=== PATIENT | male | born 1980 | race Caucasian/White ===

== ENCOUNTER 2017-10-29 20:15 | Emergency (ER) | payer OTHER ==
[2017-10-29] MEDS: CYCLOBENZAPRINE 10 MG TABLET. PO (21:20)
[2017-10-29] MEDS: HYDROcodone/APAP 5/325MG 1 TAB TABLET PO (21:20)
== END 2017-10-29 22:32 | disposition home or self-care (01) ==
LOC: ER 20:15
DX: S13.4XXA Sprain of ligaments of cervical spine, initial encounter (principal); S23.3XXA Sprain of ligaments of thoracic spine, initial encounter; S39.012A Strain of muscle, fascia and tendon of lower back, initial encounter; K21.9 Gastro-esophageal reflux disease without esophagitis; F12.10 Cannabis abuse, uncomplicated; Z87.442 Personal history of urinary calculi; Z96.0 Presence of urogenital implants; Z88.5 Allergy status to narcotic agent; V43.52XA Car driver injured in collision with other type car in traffic accident, initial encounter; Y93.I9 Activity, other involving external motion; Y92.410 Unspecified street and highway as the place of occurrence of the external cause; Y99.8 Other external cause status
CPT/HCPCS: 72125; 72128; 72131; 99284-25

== ENCOUNTER 2017-11-07 08:27 | Emergency (ER) | payer OTHER ==
[2017-11-07 09:24] LABS: ADD MAN DIFF? NO
[2017-11-07 09:27] LABS: BASO # 0.1 x10^3/uL (0.0-0.2); BASO % 1 % (0-3); EOS # 0.3 x10^3/uL (0.0-0.7); EOS % 4 % (0-3); HEMATOCRIT 44.8 % (39.0-53.0); HEMOGLOBIN 15.4 g/dL (13.0-17.5); LYMPH # 2.5 x10^3/uL (1.0-4.8); LYMPH % 30 % (24-48); MEAN CORPUSCULAR HEMOGLOBIN 30 pg (25-35); MEAN CORPUSCULAR HGB CONC 34 g/dL (31-37); MEAN CORPUSCULAR VOLUME 87 fL (79-100); MONO # 0.6 x10^3/uL (0.0-1.1); MONO % 8 % (0-9); NEUT # 4.8 x10^3uL (1.8-7.7); NEUT % 58 % (31-73); PLATELET COUNT 202 x10^3/uL (140-400); RED BLOOD COUNT 5.15 x10^6/uL (4.30-5.70); RED CELL DISTRIBUTION WIDTH 13.1 % (11.5-14.5); WHITE BLOOD COUNT 8.3 x10^3/uL (4.0-11.0)
[2017-11-07] MEDS: IV NORMAL SALINE 1000ML BAG 1,000 ML IV (09:28)
[2017-11-07] MEDS: fentaNYL PF VIAL 100 MCG/2 ML VIAL IV (09:29)
[2017-11-07] MEDS: ONDANSETRON PF 4 MG/2 ML VIAL. IV (09:29)
[2017-11-07 09:46] LABS: ANION GAP 13 (6-14); BLOOD UREA NITROGEN 16 mg/dL (8-26); BUN/CREATININE RATIO 16 (6-20); CARBON DIOXIDE 23 mmol/L (21-32); CHLORIDE 108 mmol/L (98-107); GFR 83.6; GLUCOSE 116 mg/dL (70-99); POTASSIUM 4.1 mmol/L (3.5-5.1); SODIUM 144 mmol/L (136-145)
[2017-11-07 09:50] LABS: ALBUMIN 3.8 g/dL (3.4-5.0); ALBUMIN/GLOBULIN RATIO 1.2 (1.0-1.7); ALK PHOS 107 U/L (46-116); ALT (SGPT) 56 U/L (16-63); AST (SGOT) 22 U/L (15-37); LIPASE 267 U/L (73-393); TOTAL BILIRUBIN 0.2 mg/dL (0.2-1.0); TOTAL PROTEIN 7.1 g/dL (6.4-8.2)
[2017-11-07 09:56] LABS: BILIRUBIN,URINE NEGATIVE (NEG); CLARITY,URINE CLOUDY; COLOR,URINE YELLOW; GLUCOSE,URINE NEGATIVE (NEG); NITRITE,URINE NEGATIVE (NEG); PROTEIN,URINE NEGATIVE (NEG-TRACE); UROBILINOGEN,URINE 0.2 mg/dL (0.2 mg/dL)
[2017-11-07 10:21] LABS: BACTERIA,URINE 0 /HPF (0-FEW); HYALINE CASTS, URINE OCCASIONAL /HPF; RBC,URINE 0 /HPF (0-2); SQUAMOUS EPITHELIAL CELL,UR OCC /LPF; WBC,URINE OCC /HPF (0-4)
== END 2017-11-07 11:45 | disposition home or self-care (01) ==
LOC: ER 08:27
DX: S39.012A Strain of muscle, fascia and tendon of lower back, initial encounter (principal); K21.9 Gastro-esophageal reflux disease without esophagitis; Z87.442 Personal history of urinary calculi; F12.10 Cannabis abuse, uncomplicated; Z88.5 Allergy status to narcotic agent; X58.XXXA Exposure to other specified factors, initial encounter; Y93.89 Activity, other specified; Y99.8 Other external cause status; Y92.89 Other specified places as the place of occurrence of the external cause
CPT/HCPCS: 36415; 74176; 80053; 81001; 83690; 85025; 96361; 96374; 96375; 99285-25; J2405; J3010; J7030

== ENCOUNTER 2019-10-27 12:55 | Emergency (ER) | payer OTHER ==
[~2019-10-27] VITALS: Ht 182.9 cm; Wt 118.0 kg
[~2019-10-27 12:55] MED LIST: CYCL10TA2 PO; DIAZ5TAB PO; NAPR-514 PO
[2019-10-27] MEDS ORDERED: IV NORMAL SALINE 1000ML BAG 1,000 ML IV SCH (13:03)
--- NOTE | 2019-10-27 13:10 | PHYS DOC ---
Past Medical History Past Medical History: GERD, Kidney Stone Past Surgical History: Other Additional Past Surgical Histo: Ureteral Stents Smoking Status: Current Every Day Smoker Alcohol Use: Occasionally Drug Use: Marijuana Adult General Chief Complaint Chief Complaint: FLANK PAIN HPI HPI Patient is a 39 year old male with past medical history patient him for gastroesophageal reflux disease and ureterolithiasis which has required stent placement in the past. He presents today secondary to complaint of severe sudden onset right flank pain consistent with previous ureteral stones and associated chest pain/tightness that is rated 8/10 and he started around 11:30 after his flank pain started. He has no shortness of breath. He is very anxious and his admits he has issues with anxiety. No medications were taken prior to arrival. No fever or chills. No shortness of breath. Review of Systems Review of Systems All other ROS is negative unless otherwise stated in HPI Current Medications Current Medications Current Medications Medications (Trade) Dose Ordered Sig/Diaz Start Time Stop Time Status Last Admin Dose Admin Aspirin (Children'S Aspirin) 324 mg 1X ONCE 10/27/19 13:15 10/27/19 13:16 DC 10/27/19 13:18 324 MG Diltiazem HCl (Cardizem Iv Push) 10 mg 1X ONCE 10/27/19 15:00 10/27/19 15:01 DC 10/27/19 15:02 10 MG Diltiazem HCl 125 mg/Sodium Chloride 125 ml @ 5 mls/hr 1X ONCE 10/27/19 15:15 10/28/19 16:14 10/27/19 15:33 5 MLS/HR Fentanyl Citrate (Fentanyl 2ml Vial) 50 mcg 1X ONCE 10/27/19 15:45 10/27/19 15:46 DC 10/27/19 15:37 50 MCG Ketorolac Tromethamine (Toradol 30mg Vial) 30 mg 1X ONCE 10/27/19 13:45 10/27/19 13:46 DC 10/27/19 13:48 30 MG Lorazepam (Ativan Inj) 0.5 mg 1X ONCE 10/27/19 13:15 10/27/19 13:16 DC 10/27/19 13:18 0.5 MG Ondansetron HCl (Zofran) 4 mg STK-MED ONCE 10/27/19 15:51 10/27/19 15:51 DC Sodium Chloride 1,000 ml @ 1,000 mls/hr Q1H 10/27/19 13:03 10/27/19 14:02 DC 10/27/19 13:18 1,000 MLS/HR Allergies Allergies Allergies Coded Allergies Type Severity Reaction Last Updated Verified morphine Allergy Intermediate 01/24/15 No Physical Exam Physical Exam See above Constitutional: Well developed, well nourished, anxious, non-toxic appearance. [] HENT: Normocephalic, atraumatic, bilateral external ears normal, oropharynx moist, no oral exudates, nose normal. [] Eyes: PERRLA, EOMI, conjunctiva normal, no discharge. [] Neck: Normal range of motion, no tenderness, supple, no stridor. [] Cardiovascular:Heart rate regular rhythm, no murmur [] Lungs & Thorax: Bilateral breath sounds clear to auscultation [] Abdomen: Bowel sounds normal, soft, no tenderness, no masses, no pulsatile masses. [] Skin: Warm, dry, no erythema, no rash. [] Back: No tenderness, no CVA tenderness. [] Extremities: No tenderness, no cyanosis, no clubbing, ROM intact, no edema. [] Neurologic: Alert and oriented X 3, normal motor function, normal sensory function, no focal deficits noted. [] Psychologic: Affect normal, judgement normal, mood normal. [] Current Patient Data Vital Signs Vital Signs Date Time Temp Pulse Resp B/P (MAP) Pulse Ox O2 Delivery O2 Flow Rate FiO2 10/27/19 15:02 130 118/72 10/27/19 14:17 18 96 Room Air 10/27/19 13:10 97.4 97.4 Lab Values Laboratory Tests Test 10/27/19 13:10 10/27/19 14:24 White Blood Count 13.6 x10^3/uL (4.0-11.0) H Red Blood Count 5.34 x10^6/uL (4.30-5.70) Hemoglobin 15.9 g/dL (13.0-17.5) Hematocrit 46.2 % (39.0-53.0) Mean Corpuscular Volume 87 fL (79-100) Mean Corpuscular Hemoglobin 30 pg (25-35) Mean Corpuscular Hemoglobin Concent 34 g/dL (31-37) Red Cell Distribution Width 13.6 % (11.5-14.5) Platelet Count 226 x10^3/uL (140-400) Neutrophils (%) (Auto) 80 % (31-73) H Lymphocytes (%) (Auto) 15 % (24-48) L Monocytes (%) (Auto) 4 % (0-9) Eosinophils (%) (Auto) 0 % (0-3) Basophils (%) (Auto) 1 % (0-3) Neutrophils # (Auto) 10.8 x10^3/uL (1.8-7.7) H Lymphocytes # (Auto) 2.0 x10^3/uL (1.0-4.8) Monocytes # (Auto) 0.6 x10^3/uL (0.0-1.1) Eosinophils # (Auto) 0.0 x10^3/uL (0.0-0.7) Basophils # (Auto) 0.2 x10^3/uL (0.0-0.2) Prothrombin Time 12.4 SEC (11.7-14.0) Prothrombin Time INR 1.0 (0.8-1.1) Activated Partial Thromboplast Time 31 SEC (24-38) Sodium Level 142 mmol/L (136-145) Potassium Level 4.2 mmol/L (3.5-5.1) Chloride Level 104 mmol/L (98-107) Carbon Dioxide Level 28 mmol/L (21-32) Anion Gap 10 (6-14) Blood Urea Nitrogen 14 mg/dL (8-26) Creatinine 1.2 mg/dL (0.7-1.3) Estimated GFR (Cockcroft-Gault) 67.1 BUN/Creatinine Ratio 12 (6-20) Glucose Level 109 mg/dL (70-99) H Calcium Level 9.7 mg/dL (8.5-10.1) Magnesium Level 1.9 mg/dL (1.8-2.4) Total Bilirubin 0.3 mg/dL (0.2-1.0) Aspartate Amino Transferase (AST) 30 U/L (15-37) Alanine Aminotransferase (ALT) 60 U/L (16-63) Alkaline Phosphatase 93 U/L (46-116) Creatine Kinase 174 U/L (39-308) Creatine Kinase MB (Mass) 0.8 ng/mL (0.0-3.6) Creatine Kinase MB Relative Index 0.5 % (0-4) Troponin I Quantitative < 0.017 ng/mL (0.000-0.055) CJ-Uiv-N-Type Natriuretic Peptide 69 pg/mL (0-124) Total Protein 7.8 g/dL (6.4-8.2) Albumin 4.4 g/dL (3.4-5.0) Albumin/Globulin Ratio 1.3 (1.0-1.7) Lipase 220 U/L (73-393) Urine Collection Type Unknown Urine Color [place] Urine Clarity Cloudy Urine pH 7.0 Urine Specific [place] 1.025 Urine Protein 100 mg/dL (NEG-TRACE) Urine Glucose (UA) Negative mg/dL (NEG) Urine Ketones (Stick) Trace mg/dL (NEG) Urine Blood Large (NEG) Urine Nitrite Negative (NEG) Urine Bilirubin Negative (NEG) Urine Urobilinogen Dipstick 0.2 mg/dL (0.2 mg/dL) Urine Leukocyte Esterase Small (NEG) Urine RBC >40 /HPF (0-2) Urine WBC 5-10 /HPF (0-4) Urine Amorphous Sediment Present /HPF Urine Bacteria 0 /HPF (0-FEW) Urine Mucus Marked /LPF Laboratory Tests 10/27/19 13:10 Laboratory Tests 10/27/19 13:10 EKG EKG []EKG shows atrial fibrillation with some minimal ST depression in the anterolateral leads and no ST elevation. Heart rate is 154. Radiology/Procedures Radiology/Procedures [] Course & Med Decision Making Course & Med Decision Making Pertinent Labs and Imaging studies reviewed. (See chart for details) 1310: Patient seen for sudden onset of right flank pain consistent with previous renal stones and associated chest tightness. We will initiate cardiac workup and give aspirin injury to the chest tightness. Patient will receive Ativan for anxiety and fentanyl for pain. CT scan to evaluate for ureteral stone. 1454: This patient's workup is complete at this time and he does have a 13 mm right ureteral stone. We do not have urology here and given the size of the patient's stone he will need to have transferred for intervention. The patient is also an atrial fibrillation with RVR and he has been given 10 mg of Cardizem. Dragon Disclaimer Dragon Disclaimer This electronic medical record was generated, in whole or in part, using a voice recognition dictation system. Departure Departure Impression: Primary Impression: Right ureteral calculus Additional Impressions: Atrial fibrillation with RVR Chest pressure Disposition: 02 [facility] (Transfer to [facility]; accepted by Dr. Colunga) Condition: STABLE Referrals: ANITRA MOSELEY MD (PCP) Critical Care Note Total Time (mins): 30 Comments Patient seen with atrial fibrillation with RVR. He's been given 10 mg Cardizem and we will continue to monitor this and start Cardizem drip if needed. Problem Qualifiers DESEAN BALBUENA DO Oct 27, 2019 13:10
[2019-10-27] MEDS ORDERED: fentaNYL PF VIAL 100 MCG/2 ML VIAL IVP ONE ×3 (13:15→17:30)
[2019-10-27] MEDS ORDERED: ASPIRIN CHEWABLE 81 MG TABLET. PO ONE (13:15)
[2019-10-27 13:20] LABS: BASO # 0.2 x10^3/uL (0.0-0.2); BASO % 1 % (0-3); EOS % 0 % (0-3); HEMATOCRIT 46.2 % (39.0-53.0); HEMOGLOBIN 15.9 g/dL (13.0-17.5); LYMPH % 15 % (24-48); MEAN CORPUSCULAR HEMOGLOBIN 30 pg (25-35); MEAN CORPUSCULAR HGB CONC 34 g/dL (31-37); MEAN CORPUSCULAR VOLUME 87 fL (79-100); MONO # 0.6 x10^3/uL (0.0-1.1); MONO % 4 % (0-9); NEUT # 10.8 x10^3/uL (1.8-7.7); NEUT % 80 % (31-73); PLATELET COUNT 226 x10^3/uL (140-400); RED BLOOD COUNT 5.34 x10^6/uL (4.30-5.70); RED CELL DISTRIBUTION WIDTH 13.6 % (11.5-14.5); WHITE BLOOD COUNT 13.6 x10^3/uL (4.0-11.0)
[2019-10-27 13:31] LABS: CALCIUM 9.7 mg/dL (8.5-10.1); CREATININE 1.2 mg/dL (0.7-1.3); GFR 67.1; POTASSIUM 4.2 mmol/L (3.5-5.1)
--- NOTE | 2019-10-27 13:34 | RAD ---
AP chest x-ray HISTORY: Chest pain. FINDINGS: Heart size normal. Mediastinal silhouette is normal. No pneumothorax, pulmonary opacities or pleural effusions. The bones are unremarkable. IMPRESSION: No acute process. Electronically signed by: Lorenzo Ng MD (10/27/2019 1:31 PM) [id number]
[2019-10-27 13:36] LABS: ALBUMIN 4.4 g/dL (3.4-5.0); ALBUMIN/GLOBULIN RATIO 1.3 (1.0-1.7); MAGNESIUM 1.9 mg/dL (1.8-2.4); TOTAL BILIRUBIN 0.3 mg/dL (0.2-1.0); TOTAL PROTEIN 7.8 g/dL (6.4-8.2)
[2019-10-27 13:40] LABS: PROTHROMBIN TIME PATIENT 12.4 SEC (11.7-14.0)
[2019-10-27] MEDS ORDERED: KETOROLAC 30 MG/ML VIAL. IVP ONE (13:45)
--- NOTE | 2019-10-27 13:54 | RAD ---
CT abdomen and pelvis without contrast PQRS statement: CT scans at this facility use dose reduction including either automated exposure control, iterative reconstructions, and /or weight based radiation dosing via mA and kV modification when appropriate to reduce radiation dose to as low as reasonably achievable. HISTORY: Right flank pain. History kidney stones. COMPARISON: CT abdomen and pelvis November 07, 2017. Abdomen findings: Lung bases unremarkable. Lower lumbar changes of disc disease. Liver, gallbladder, adrenals, pancreas, spleen and left kidney are unremarkable. Exophytic right renal upper pole 2 cm lesion density of 41 units, with increased density from older CT imaging in 2014 when it had a density of 12 units at that time, with a similar sized lesion. Duplicated right renal pelvis and ureters, or the 2 ureters merge at the abdomen there is an obstructing oblong 13 mm calculus with mild right renal hydronephrosis and perinephric and periureteral edema. 3 mm nonobstructing right renal lower pole calculus. Appendix is negative. No bowel obstruction. Tiny splenule left upper quadrant. 3 cm supraumbilical fatty abdominal wall hernia. Pelvis findings: No bladder calculi. Prostate, rectum and bones are unremarkable. IMPRESSION: 1. 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 Where the 2 ureters merge there is a 13 mm obstructing ureteral calculus contributing to mild hydronephrosis and edema. 2. Exophytic 2 cm right renal upper pole lesion with an internal density of 42 units, this density has increased compared to older imaging. This could indicate hemorrhage within a cyst. Development of an intracystic solid tumor is not excluded. This could be further assessed with outpatient renal CT or MR imaging. 3. Appendix is negative. 4. Other incidental findings as described above. Electronically signed by: Lorenzo Ng MD (10/27/2019 1:51 PM) [id number]
[2019-10-27 14:32] LABS: BILIRUBIN,URINE NEGATIVE (NEG); CLARITY,URINE CLOUDY; COLOR,URINE AMBER; NITRITE,URINE NEGATIVE (NEG); PROTEIN,URINE 100 mg/dL (NEG-TRACE); UROBILINOGEN,URINE 0.2 mg/dL (0.2 mg/dL)
[2019-10-27 14:53] LABS: BACTERIA,URINE 0 /HPF (0-FEW); RBC,URINE >40 /HPF (0-2)
[2019-10-27 14:54] LABS: AMORPHOUS SEDIMENT,UR PRESENT /HPF
[2019-10-27] MEDS ORDERED: dilTIAZem IV PUSH 25 MG/5 ML VIAL IVP ONE (15:00)
[2019-10-27] MEDS ORDERED: dilTIAZem INJ 125 MG in IV NORMAL SALINE 100ML 100 ML IV ONE (15:15)
[2019-10-27] MEDS ORDERED: ONDANSETRON PF 4 MG/2 ML VIAL. ONE (15:51)
[2019-10-27] MEDS ORDERED: ONDANSETRON PF 4 MG/2 ML VIAL. IVP ONE (16:00)
[2019-10-27 17:17] VITALS: BP 119/92
--- NOTE | 2019-10-27 22:08 | EKG ---
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
== END 2019-10-27 17:37 | disposition short-term general hospital (02) ==
LOC: ER 12:55
DX: N20.1 Calculus of ureter (principal); I48.20 Chronic atrial fibrillation, unspecified; R07.89 Other chest pain; F41.9 Anxiety disorder, unspecified; K21.9 Gastro-esophageal reflux disease without esophagitis; F12.90 Cannabis use, unspecified, uncomplicated; F17.200 Nicotine dependence, unspecified, uncomplicated; Z87.442 Personal history of urinary calculi; Z98.890 Other specified postprocedural states; Z88.6 Allergy status to analgesic agent; Z79.82 Long term (current) use of aspirin; Z79.899 Other long term (current) drug therapy
CPT/HCPCS: 36415; 71045; 74176; 80053; 81001; 82553; 83690; 83735; 83880; 84484; 85025; 85610; 85730; 87086; 93005; 96365; 96375; 96376; 99285; J1885; J2060; J2405; J3010; J3490; J7030